=== PATIENT | female | born 1930 | race Caucasian/White ===

== ENCOUNTER 2019-04-17 08:42 | Inpatient (IN) ==
--- NOTE | 2019-04-17 08:59 | Emergency Department Note ---
Disposition Clinical Impression: JAKI (acute kidney injury) Hypothermia Qualifiers: Encounter type: initial encounter Qualified Code(s): T68.XXXA - Hypothermia, initial encounter Fall Qualifiers: Encounter type: initial encounter Qualified Code(s): W19.XXXA - Unspecified fall, initial encounter Disposition: Admitted As Inpatient Condition: Fair Time of Disposition: 14:10 General Adult HPI - General Chief complaint: ED Fall Stated complaint: Fall Time Seen by Provider: 04/17/19 08:49 Source: patient, EMS Mode of arrival: EMS Limitations: altered mental status Nursing Notes Reviewed: Yes Vital Signs Reviewed: Yes - History of Present Illness HPI Narrative: . - Related Data Home Medications Medication Instructions Recorded Confirmed Cholecalciferol (D-3) [Vitamin D] 1,000 unit PO DAILY 08/08/18 08/10/18 Cyanocobalamin (Vitamin B-12) 2,000 mcg PO HS 08/08/18 08/10/18 [Vitamin B12] Furosemide [Lasix] 20 mg PO DAILY 08/08/18 08/10/18 Lisinopril [Zestril] 40 mg PO DAILY 08/08/18 08/10/18 Metoprolol Tartrate [Lopressor] 50 mg PO BID 08/08/18 08/10/18 Aspirin [Lo-Dose Aspirin EC] 81 mg PO DAILY 08/10/18 08/10/18 Previous Rx's Medication Instructions Recorded Levothyroxine [Synthroid] 137 mcg PO DAILY@0630 #30 tablet 08/10/18 amLODIPine [Norvasc] 5 mg PO DAILY #30 tablet 08/10/18 Cephalexin [Keflex] 500 mg PO TID #15 capsule 02/23/19 Acyclovir [Zovirax] 800 mg PO 5XD #50 tablet 04/06/19 predniSONE [PredniSONE] 40 mg PO DAILY #7 tablet 04/06/19 Allergies Allergy/AdvReac Type Severity Reaction Status Date / Time Sulfa (Sulfonamide AdvReac Rash Verified 08/08/18 02:36 Antibiotics) Past Medical History - Past Medical History Medical history: Reports: arthritis, hypertension, thyroid disease Surgical history: Reports: knee replacement Psychiatric history: Reports: no psych history - Social History Smoking Status: Never smoker Smokeless Tobacco Status: No Alcohol use: Reports: none Drug use: Reports: none Course Vital Signs Temperature 91.7 F L 04/17/19 08:48 Pulse Rate 58 04/17/19 08:48 Respiratory Rate 18 04/17/19 08:48 Blood Pressure 119/49 04/17/19 08:48 O2 Sat by Pulse Oximetry 100 04/17/19 08:48 Temperature 95.9 F L 04/17/19 14:17 Pulse Rate 70 04/17/19 14:17 Respiratory Rate 18 04/17/19 14:17 Blood Pressure 116/96 04/17/19 14:17 O2 Sat by Pulse Oximetry 98 04/17/19 14:17 Oxygen Delivery Oxygen Delivery Room Air Medical Decision Making - Lab Data Result diagrams: 04/17/19 09:02 04/17/19 09:02 Lab Results 04/17/19 04/17/19 04/17/19 Range/Units 09:02 09:02 09:02 WBC 10.4 (4.3-11.1) K/mcL RBC 4.13 (3.82-4.97) M/mcL Hgb 12.9 (11.5-15.4) g/dL Hct 38.4 (35.3-44.9) % MCV 93.0 (83.0-100.0) fL MCH 31.2 (28.0-33.3) pg MCHC 33.6 (31.6-35.5) g/dL RDW 12.4 (11.5-14.5) % Plt Count 277 (140-400) K/mcL MPV 9.7 (9.4-12.4) fL Immature Gran % 1.0 (0-4) % Seg Neutrophils % 77.6 % Lymphocytes % 12.8 % Monocytes % 6.1 % Eosinophils % 2.4 % Basophils % 0.1 % Neutrophils # 8.1 (1.6-8.9) K/mcL Lymphocytes # 1.3 (0.6-4.6) K/mcL Monocytes # 0.6 (0.0-1.3) K/mcL Eosinophils # 0.3 (0.0-0.6) K/mcL Basophils # 0.0 (0.0-0.2) K/mcL Sodium 137 (136-145) mEq/L Potassium 3.5 (3.5-5.1) mEq/L Chloride 103 (98-107) mEq/L Carbon Dioxide 23 (23-29) mEq/L BUN 79 H (8-23) mg/dL Creatinine 1.62 H (0.60-1.20) mg/dL Est GFR ( Amer) 36 L (> 60) Est GFR (Non-Af Amer) 30 L (> 60) BUN/Creatinine Ratio 49 H (6-26) Glucose 194 H (70-105) mg/dL Calculated Osmolality 313 H (280-300) Lactic Acid (0.5-2.2) mmol/L Calcium 8.7 (8.6-10.3) mg/dL Phosphorus 4.2 (2.7-4.5) mg/dL Magnesium 1.9 (1.6-2.6) mg/dL Total Bilirubin 0.3 (0.3-1.0) mg/dL Direct Bilirubin 0.0 (0.0-0.2) mg/dL Indirect Bilirubin 0.3 (0.0-1.2) mg/dL AST 21 (13-39) Units/L ALT 37 (7-52) Units/L Alkaline Phosphatase 99 (34-104) Units/L Creatine Kinase 17 L (30-223) Units/L Troponin I < 0.03 (< 0.04) ng/mL Serum Total Protein 5.6 L (6.4-8.9) g/dL Albumin 3.1 L (3.5-5.7) g/dL Globulin 2.5 (2.4-3.5) g/dL Albumin/Globulin Ratio 1.2 (1.1-2.2) TSH (0.340-5.600) mcIU/mL Free T4 (0.70-2.00) ng/dl Thyroxine (T4) (5.50-11.00) mcg/dL Free T3 (2.50-3.90) pg/mL Total T3 (0.87-1.78) ng/mL Urine Color Yellow (Yellow) Urine Clarity Clear (Clear) Urine pH 5.0 (5.0-8.0) pH Units Ur Specific [place] 1.018 (1.010-1.025) Urine Protein Negative (Neg-Trace) mg/dL Urine Glucose (UA) Normal (Normal) mg/dL Urine Ketones Negative (Negative) mg/dL Urine Blood Negative (Negative) Urine Nitrite Negative (Negative) Urine Bilirubin Negative (Negative) Urine Urobilinogen Normal (Normal) mg/dL Ur Leukocyte Esterase Negative (Negative) 04/17/19 04/17/19 04/17/19 Range/Units 09:17 11:13 12:56 WBC (4.3-11.1) K/mcL RBC (3.82-4.97) M/mcL Hgb (11.5-15.4) g/dL Hct (35.3-44.9) % MCV (83.0-100.0) fL MCH (28.0-33.3) pg MCHC (31.6-35.5) g/dL RDW (11.5-14.5) % Plt Count (140-400) K/mcL MPV (9.4-12.4) fL Immature Gran % (0-4) % Seg Neutrophils % % Lymphocytes % % Monocytes % % Eosinophils % % Basophils % % Neutrophils # (1.6-8.9) K/mcL Lymphocytes # (0.6-4.6) K/mcL Monocytes # (0.0-1.3) K/mcL Eosinophils # (0.0-0.6) K/mcL Basophils # (0.0-0.2) K/mcL Sodium (136-145) mEq/L Potassium (3.5-5.1) mEq/L Chloride (98-107) mEq/L Carbon Dioxide (23-29) mEq/L BUN (8-23) mg/dL Creatinine (0.60-1.20) mg/dL Est GFR ( Amer) (> 60) Est GFR (Non-Af Amer) (> 60) BUN/Creatinine Ratio (6-26) Glucose (70-105) mg/dL Calculated Osmolality (280-300) Lactic Acid 2.4 H 1.2 (0.5-2.2) mmol/L Calcium (8.6-10.3) mg/dL Phosphorus (2.7-4.5) mg/dL Magnesium (1.6-2.6) mg/dL Total Bilirubin (0.3-1.0) mg/dL Direct Bilirubin (0.0-0.2) mg/dL Indirect Bilirubin (0.0-1.2) mg/dL AST (13-39) Units/L ALT (7-52) Units/L Alkaline Phosphatase (34-104) Units/L Creatine Kinase (30-223) Units/L Troponin I (< 0.04) ng/mL Serum Total Protein (6.4-8.9) g/dL Albumin (3.5-5.7) g/dL Globulin (2.4-3.5) g/dL Albumin/Globulin Ratio (1.1-2.2) TSH 0.549 (0.340-5.600) mcIU/mL Free T4 2.46 H (0.70-2.00) ng/dl Thyroxine (T4) 11.74 H (5.50-11.00) mcg/dL Free T3 1.58 L (2.50-3.90) pg/mL Total T3 0.19 L (0.87-1.78) ng/mL Urine Color (Yellow) Urine Clarity (Clear) Urine pH (5.0-8.0) pH Units Ur Specific [place] (1.010-1.025) Urine Protein (Neg-Trace) mg/dL Urine Glucose (UA) (Normal) mg/dL Urine Ketones (Negative) mg/dL Urine Blood (Negative) Urine Nitrite (Negative) Urine Bilirubin (Negative) Urine Urobilinogen (Normal) mg/dL Ur Leukocyte Esterase (Negative) Critical Care Time Critical Care Time: Yes Total Critical Care Time: 45 Attestation: Critical care performed: Time is exclusive of separately billable procedures. Time includes: direct patient care, patient reassessment, coordination of patient care, interpretation of data (laboratory data, radiology data, and respiratory data), review of patient's medical records, medical consultation and documentation of patient care. Procedures included in critical care time: Procedures excluded from critical care time: Attestation Statement - Attestation Attestation: I examined this patient and my medical decision-making was reviewed with the Resident Physician. I agree with the documented findings, disposition and treatment plan as described except to the extent set forth below. Patient to the ED after a fall. Patient had an unwitnessed fall at her assisted living. Fell into the bathtub. EMS she was complaining of head pain. Patient does not reliably answer questions for me. Patient states she "just fell." She does not remember if she was dizzy. She does not know if she lost consciousness. It was unwitnessed. On exam she is awake alert. Answers some questions appropriately. She is not oriented to time or place. Abdomen is soft. She is noted to have some scabs on the left chest wall consistent with a recent history of herpes zoster. No hematemesis the head. No cervical spine tenderness. No reproducible tenderness over the thoracic or lumbar spine. Pupils are symmetric and sluggish. She appears to have had some type of surgery. Plan. Patient does not answer questions appropriately. Will need imaging. She is also hypothermic. Septic workup. Likely admission. Patient with an AK I. No infectious source found. Still awaiting CTs. We will admit to medicine. EKG was reviewed with the resident. No acute ischemic changes. CT shows no acute injury. She continues to be hypothermic. We will check a TSH. Admit to medicine. Thyroid studies do not show her to be hypothyroid. Chest X-Ray 04/17/19 09:48 IMPRESSION: 1. No acute cardiopulmonary disease. D/ / 04/17/2019 10:34:11 Flex Gilliam MD / [facility] [email or web address] Interpreting Provider: Flex Gilliam MD Lumbar Spine CT 04/17/19 10:45 IMPRESSION: No acute abnormality of thoracic or lumbar spine D/ / Chelly Mays Cha, MD / Chelly Mays Cha, MD Interpreting Provider: Chelly Mays Cha, MD Thoracic Spine CT 04/17/19 10:45 IMPRESSION: No acute abnormality of thoracic or lumbar spine D/ / Chelly Mays Cha, MD / Chelly Mays Cha, MD Interpreting Provider: Chelly Mays Cha, MD Head CT 04/17/19 10:51 IMPRESSION: Cerebral atrophy. Severe chronic small vessel ischemic changes. Atherosclerotic calcification of the cavernous carotid arteries. No acute intracranial abnormality. D/ / Roro Bedoya MD / Roro Bedoya MD Interpreting Provider: Roro Bedoya MD
[2019-04-17] MEDS ORDERED: 0.9 % Sodium Chloride 1,000 ML IVC ONE (09:07)
--- NOTE | 2019-04-17 09:20 | Emergency Department Note ---
Disposition Clinical Impression: JAKI (acute kidney injury) Hypothermia Qualifiers: Encounter type: initial encounter Qualified Code(s): T68.XXXA - Hypothermia, initial encounter Fall Qualifiers: Encounter type: initial encounter Qualified Code(s): W19.XXXA - Unspecified fall, initial encounter Disposition: Admitted As Inpatient Condition: Fair Time of Disposition: 13:30 General Adult HPI - General Chief complaint: ED Fall Stated complaint: Fall Time Seen by Provider: 04/17/19 08:49 Source: patient, EMS Mode of arrival: EMS Limitations: altered mental status Nursing Notes Reviewed: Yes Vital Signs Reviewed: Yes - History of Present Illness HPI Narrative: Patient is an 80-year-old female past medical history of hypertension, h ypothyroidism, bilateral knee replacement presents to the ED for evaluation after fall this AM. Patient was found down in the bathroom tub. States she was using the toiletries and fell head first into the tub. ECF states she had donuts earlier this morning so they do not believe she was down for a prolonged period of time. No blood thinners. Unknown code status. Patient c/o HAYES and back pain. Being treated for zoster rash on the right side. Pain Scale: 6 - Related Data Home Medications Medication Instructions Recorded Confirmed Cholecalciferol (D-3) [Vitamin D] 1,000 unit PO DAILY 08/08/18 08/10/18 Cyanocobalamin (Vitamin B-12) 2,000 mcg PO HS 08/08/18 08/10/18 [Vitamin B12] Furosemide [Lasix] 20 mg PO DAILY 08/08/18 08/10/18 Lisinopril [Zestril] 40 mg PO DAILY 08/08/18 08/10/18 Metoprolol Tartrate [Lopressor] 50 mg PO BID 08/08/18 08/10/18 Aspirin [Lo-Dose Aspirin EC] 81 mg PO DAILY 08/10/18 08/10/18 Previous Rx's Medication Instructions Recorded Levothyroxine [Synthroid] 137 mcg PO DAILY@0630 #30 tablet 08/10/18 amLODIPine [Norvasc] 5 mg PO DAILY #30 tablet 08/10/18 Cephalexin [Keflex] 500 mg PO TID #15 capsule 02/23/19 Acyclovir [Zovirax] 800 mg PO 5XD #50 tablet 09/10/19 predniSONE [PredniSONE] 40 mg PO DAILY #7 tablet 04/06/19 Allergies Allergy/AdvReac Type Severity Reaction Status Date / Time Sulfa (Sulfonamide AdvReac Rash Verified 08/08/18 02:36 Antibiotics) All systems ED: reviewed and negative except as stated. Review of Systems: As Per HPI Constitutional: Denies: fever, chills Cardiovascular: Denies: chest pain, palpitations, dyspnea on exertion Respiratory: Denies: cough, dyspnea Gastrointestinal: Denies: abdominal pain, nausea, vomiting, diarrhea Genitourinary: Denies: urgency, dysuria Musculoskeletal: Reports: back pain. Denies: neck pain Integumentary: Reports: rash Neurological: Reports: headache. Denies: weakness, numbness, paresthesias, confusion, abnormal gait Past Medical History - Past Medical History Attestation: Yes The following information was validated with the patient. Medical history: Reports: non-contributory, arthritis, hypertension, thyroid disease Surgical history: Reports: knee replacement Psychiatric history: Reports: no psych history - Social History Smoking Status: Never smoker Smokeless Tobacco Status: No Alcohol use: Reports: none Drug use: Reports: none Physical Exam CONSTITUTIONAL: A&O X2, in no apparent distress, no evidence of shock HEAD: Normocephalic; atraumatic. No vila sign, raccoon eyes or evidence of CSF drainage EYES: PERRL, EOMI, no scleral icterus EARS: No hemotympanum or TM rupture, no otorrhea NECK: No tracheal deviation, JVD, or hematoma. Palpation of the posterior cervical spine reveals no tenderness NOSE: The nose is normal in appearance without rhinorrhea, epistaxis, or septal hematoma. MOUTH: Normal with intact dentition CHEST: no chest tenderness with palpation RESP: Normal chest excursion with respiration, no paradoxical motion, subcutaneous emphysema. The breath sounds are clear and equal bilaterally CARD: Regular rhythm, without murmurs, rub or gallop ABD: No distention, ecchymosis, abrasions. Non-tender, soft, without rigidity, rebound or guarding PELVIS: No laxity or tenderness with palpation or compression EXT: Good ROM without tenderness, deformity. Pulses 2+ in 4 extremities SKIN: Normal for age and race; Rash beneath left breast that is raw and pink. - General Limitations: altered mental status General appearance: alert, in no apparent distress Course Course Narrative: Patient's hypothermia is mildly improving last recorded temperature was 93 degrees Fahrenheit. Her blood pressures remained soft however on numerous rechecks she is been maintaining a map greater than 65. Lactic was slightly elevated she also has acute kidney injury suspect this is partially due to dehydration him also considering that she may be on too many blood pressure medications. Her EKG was nonischemic. I also check thyroid hormone given her hypothermia and bradycardia however that appear to be normal. Do not suspect that this is from an infectious cause given her negative chest x-ray and urinalysis. She will need to come into the hospital for further evaluation was accepted by the hospitalist. Vital Signs Temperature 91.7 F L 04/17/19 08:48 Pulse Rate 58 04/17/19 08:48 Respiratory Rate 18 04/17/19 08:48 Blood Pressure 119/49 04/17/19 08:48 O2 Sat by Pulse Oximetry 100 04/17/19 08:48 Temperature 93.1 F L 04/17/19 12:25 Pulse Rate 50 04/17/19 12:38 Respiratory Rate 16 04/17/19 12:38 Blood Pressure 80/34 04/17/19 12:38 O2 Sat by Pulse Oximetry 99 04/17/19 12:38 Oxygen Delivery Oxygen Delivery Room Air Medical Decision Making - Medical Records Medical records reviewed: Yes I reviewed the patient's medical records. - Lab Data Lab results reviewed: Yes I reviewed the patient's lab results. Result diagrams: 04/17/19 09:02 04/17/19 09:02 Lab Results 04/17/19 04/17/19 04/17/19 Range/Units 09:02 09:02 09:02 WBC 10.4 (4.3-11.1) K/mcL RBC 4.13 (3.82-4.97) M/mcL Hgb 12.9 (11.5-15.4) g/dL Hct 38.4 (35.3-44.9) % MCV 93.0 (83.0-100.0) fL MCH 31.2 (28.0-33.3) pg MCHC 33.6 (31.6-35.5) g/dL RDW 12.4 (11.5-14.5) % Plt Count 277 (140-400) K/mcL MPV 9.7 (9.4-12.4) fL Immature Gran % 1.0 (0-4) % Seg Neutrophils % 77.6 % Lymphocytes % 12.8 % Monocytes % 6.1 % Eosinophils % 2.4 % Basophils % 0.1 % Neutrophils # 8.1 (1.6-8.9) K/mcL Lymphocytes # 1.3 (0.6-4.6) K/mcL Monocytes # 0.6 (0.0-1.3) K/mcL Eosinophils # 0.3 (0.0-0.6) K/mcL Basophils # 0.0 (0.0-0.2) K/mcL Sodium 137 (136-145) mEq/L Potassium 3.5 (3.5-5.1) mEq/L Chloride 103 (98-107) mEq/L Carbon Dioxide 23 (23-29) mEq/L BUN 79 H (8-23) mg/dL Creatinine 1.62 H (0.60-1.20) mg/dL Est GFR ( Amer) 36 L (> 60) Est GFR (Non-Af Amer) 30 L (> 60) BUN/Creatinine Ratio 49 H (6-26) Glucose 194 H (70-105) mg/dL Calculated Osmolality 313 H (280-300) Lactic Acid (0.5-2.2) mmol/L Calcium 8.7 (8.6-10.3) mg/dL Phosphorus 4.2 (2.7-4.5) mg/dL Magnesium 1.9 (1.6-2.6) mg/dL Total Bilirubin 0.3 (0.3-1.0) mg/dL Direct Bilirubin 0.0 (0.0-0.2) mg/dL Indirect Bilirubin 0.3 (0.0-1.2) mg/dL AST 21 (13-39) Units/L ALT 37 (7-52) Units/L Alkaline Phosphatase 99 (34-104) Units/L Creatine Kinase 17 L (30-223) Units/L Troponin I < 0.03 (< 0.04) ng/mL Serum Total Protein 5.6 L (6.4-8.9) g/dL Albumin 3.1 L (3.5-5.7) g/dL Globulin 2.5 (2.4-3.5) g/dL Albumin/Globulin Ratio 1.2 (1.1-2.2) TSH (0.340-5.600) mcIU/mL Free T4 (0.70-2.00) ng/dl Thyroxine (T4) (5.50-11.00) mcg/dL Free T3 (2.50-3.90) pg/mL Total T3 (0.87-1.78) ng/mL Urine Color Yellow (Yellow) Urine Clarity Clear (Clear) Urine pH 5.0 (5.0-8.0) pH Units Ur Specific [place] 1.018 (1.010-1.025) Urine Protein Negative (Neg-Trace) mg/dL Urine Glucose (UA) Normal (Normal) mg/dL Urine Ketones Negative (Negative) mg/dL Urine Blood Negative (Negative) Urine Nitrite Negative (Negative) Urine Bilirubin Negative (Negative) Urine Urobilinogen Normal (Normal) mg/dL Ur Leukocyte Esterase Negative (Negative) 04/17/19 04/17/19 04/17/19 Range/Units 09:17 11:13 12:56 WBC (4.3-11.1) K/mcL RBC (3.82-4.97) M/mcL Hgb (11.5-15.4) g/dL Hct (35.3-44.9) % MCV (83.0-100.0) fL MCH (28.0-33.3) pg MCHC (31.6-35.5) g/dL RDW (11.5-14.5) % Plt Count (140-400) K/mcL MPV (9.4-12.4) fL Immature Gran % (0-4) % Seg Neutrophils % % Lymphocytes % % Monocytes % % Eosinophils % % Basophils % % Neutrophils # (1.6-8.9) K/mcL Lymphocytes # (0.6-4.6) K/mcL Monocytes # (0.0-1.3) K/mcL Eosinophils # (0.0-0.6) K/mcL Basophils # (0.0-0.2) K/mcL Sodium (136-145) mEq/L Potassium (3.5-5.1) mEq/L Chloride (98-107) mEq/L Carbon Dioxide (23-29) mEq/L BUN (8-23) mg/dL Creatinine (0.60-1.20) mg/dL Est GFR ( Amer) (> 60) Est GFR (Non-Af Amer) (> 60) BUN/Creatinine Ratio (6-26) Glucose (70-105) mg/dL Calculated Osmolality (280-300) Lactic Acid 2.4 H 1.2 (0.5-2.2) mmol/L Calcium (8.6-10.3) mg/dL Phosphorus (2.7-4.5) mg/dL Magnesium (1.6-2.6) mg/dL Total Bilirubin (0.3-1.0) mg/dL Direct Bilirubin (0.0-0.2) mg/dL Indirect Bilirubin (0.0-1.2) mg/dL AST (13-39) Units/L ALT (7-52) Units/L Alkaline Phosphatase (34-104) Units/L Creatine Kinase (30-223) Units/L Troponin I (< 0.04) ng/mL Serum Total Protein (6.4-8.9) g/dL Albumin (3.5-5.7) g/dL Globulin (2.4-3.5) g/dL Albumin/Globulin Ratio (1.1-2.2) TSH 0.549 (0.340-5.600) mcIU/mL Free T4 2.46 H (0.70-2.00) ng/dl Thyroxine (T4) 11.74 H (5.50-11.00) mcg/dL Free T3 1.58 L (2.50-3.90) pg/mL Total T3 0.19 L (0.87-1.78) ng/mL Urine Color (Yellow) Urine Clarity (Clear) Urine pH (5.0-8.0) pH Units Ur Specific [place] (1.010-1.025) Urine Protein (Neg-Trace) mg/dL Urine Glucose (UA) (Normal) mg/dL Urine Ketones (Negative) mg/dL Urine Blood (Negative) Urine Nitrite (Negative) Urine Bilirubin (Negative) Urine Urobilinogen (Normal) mg/dL Ur Leukocyte Esterase (Negative) - Radiology Data Radiology results reviewed: Yes I reviewed the patient's radiology results. Chest X-Ray 04/17/19 09:48 IMPRESSION: 1. No acute cardiopulmonary disease. D/ / 04/17/2019 10:34:11 Flex Gilliam MD / [facility] Interpreting Provider: Flex Gilliam MD Lumbar Spine CT 04/17/19 10:45 IMPRESSION: No acute abnormality of thoracic or lumbar spine D/ / Chelly Mays Cha, MD / Chelly Mays Cha, MD Interpreting Provider: Chelly Mays Cha, MD Thoracic Spine CT 04/17/19 10:45 IMPRESSION: No acute abnormality of thoracic or lumbar spine D/ / Chelly Mays Cha, MD / Chelly Mays Cha, MD Interpreting Provider: Chelly Mays Cha, MD Head CT 04/17/19 10:51 IMPRESSION: Cerebral atrophy. Severe chronic small vessel ischemic changes. Atherosclerotic calcification of the cavernous carotid arteries. No acute intracranial abnormality. D/ / 04/17/2019 11:28:51 Roro Bedoya MD / [facility] Interpreting Provider: Roro Bedoya MD Cervical Spine CT 04/17/19 12:42 IMPRESSION: No acute abnormality of the cervical spine. D/ / Chelly Mays Cha, MD / Chelly Mays Cha, MD Interpreting Provider: Chelly Mays Cha, MD - EKG Data EKG #1 EKG attestation: Yes I reviewed and interpreted this EKG. EKG results narrative: EKG done at 8:59 shows atrial fibrillation at a rate of 57 bpm. Normal axis. Intervals within normal limits to for slightly widened QRS at 127. Leads systolic inverted in the inferior which appears to be similar on old EKG done in January 2019. No changes.
[2019-04-17 09:26] LABS: Basophils % 0.1 %; Eosinophils # 0.3 K/mcL (0.0-0.6); Eosinophils % 2.4 %; Hematocrit 38.4 % (35.3-44.9); Hemoglobin 12.9 g/dL (11.5-15.4); Lymphocytes # 1.3 K/mcL (0.6-4.6); Lymphocytes % 12.8 %; Mean Corpuscular HGB Conc 33.6 g/dL (31.6-35.5); Mean Corpuscular Hemoglobin 31.2 pg (28.0-33.3); Mean Platelet Volume 9.7 fL (9.4-12.4); Monocytes # 0.6 K/mcL (0.0-1.3); Monocytes % 6.1 %; Neutrophils # 8.1 K/mcL (1.6-8.9); Platelet Count 277 K/mcL (140-400); Red Blood Count 4.13 M/mcL (3.82-4.97); Red Cell Distribution Width 12.4 % (11.5-14.5); Segmented Neutrophils % 77.6 %; White Blood Count 10.4 K/mcL (4.3-11.1)
[2019-04-17 09:30] LABS: Bilirubin,Urine Negative (Negative); Blood,Urine Negative (Negative); Clarity,Urine Clear (Clear); Color,Urine Yellow (Yellow); Glucose,Urine (UA) Normal (Normal); Ketones,Urine Negative (Negative); Leukocyte Esterase,Urine Negative (Negative); Nitrite,Urine Negative (Negative); Protein,Urine Negative (Neg-Trace); Specific Gravity,Urine 1.018 (1.010-1.025); Urobilinogen,Urine Normal (Normal)
[2019-04-17 09:47] LABS: Alanine Aminotransferase 37 Units/L (7-52); Albumin 3.1 g/dL (3.5-5.7); Albumin/Globulin Ratio 1.2 (1.1-2.2); Alkaline Phosphatase 99 Units/L (34-104); Aspartate Amino Transferase 21 Units/L (13-39); BUN/Creatinine Ratio 49 (6-26); Bilirubin,Indirect 0.3 mg/dL (0.0-1.2); Bilirubin,Total 0.3 mg/dL (0.3-1.0); Blood Urea Nitrogen 79 mg/dL (8-23); Calcium 8.7 mg/dL (8.6-10.3); Carbon Dioxide 23 mEq/L (23-29); Chloride 103 mEq/L (98-107); Creatine Kinase 17 Units/L (30-223); Globulin 2.5 g/dL (2.4-3.5); Glucose 194 mg/dL (70-105); Magnesium 1.9 mg/dL (1.6-2.6); Osmolality,Calculated 313 (280-300); Phosphorous 4.2 mg/dL (2.7-4.5); Potassium 3.5 mEq/L (3.5-5.1); Sodium 137 mEq/L (136-145); Total Protein 5.6 g/dL (6.4-8.9); Troponin I < 0.03 ng/mL (< 0.04); eGFR For African Americans 36 (> 60); eGFR For Non-African Americans 30 (> 60)
[2019-04-17 12:02] LABS: Thyroid Stimulating Hormone 0.549 mcIU/mL (0.340-5.600)
[2019-04-17 12:05] LABS: Triiodothyronine (T3) Free 1.58 pg/mL (2.50-3.90)
[2019-04-17 12:10] LABS: Triiodothyronine (T3) Total 0.19 ng/mL (0.87-1.78)
[2019-04-17] MEDS ORDERED: 0.9 % Sodium Chloride 1,000 ML IVC SCH ×2 (12:30→13:29)
--- NOTE | 2019-04-17 13:27 | Internal Med History&Physical ---
Date of Encounter: 04/17/19 Time of Encounter: 13:23 Internal Medicine - H&P: HPI Chief complaint: fall Admitted From: Long-term Nursing Facility Plans for Post Hospital Care: Transfer [facility] History of present illness: Ms. Bradford is a 88 year old female with past medical history of hypertension, hypothyroidism, bilateral knee replacement, diastolic CHF who was recently treated for shingles came from half-way after a fall. Patient does not able to recall exactly what led to the fall and said he was very quick. Patient was reported to eat donut early this morning and later went to bathroom where she was found on the floor. She was likely not on floor for long time before found. She was brought to the ER for further evaluation. She complained of some headache and back pain. Patient had a imaging of her spine had and neck which did not show any signs of fracture and her chest x-ray was unremarkable. Lab was significant for JAKI with mildly elevated lactic acid and normal TSH with abnormal levels of free T4 and T3. Patient's EKG was poor quality and her atrial fibrillation however was likely sinus as it was marching regularly. Patient was found to have some hypothermia and hypotension. Patient was started on Bear hugger and was given IV fluids 1 L. Her blood pressure improved. Patient recently was diagnosed with shingles and was being treated with acyclovir for 10 days and prednisone for 7 days on 04/06 chest pain. Patient also on Lasix, lisinopril, metoprolol and amlodipine at home. Her chest wounds on the left side of her breast were scabbed and following of however there was concern of intertrigo. Admission was requested for management of JAKI. Patient was evaluated in ER where she was alert and oriented 1 able to answer questions and remember some of her medical history however was a poor historian. She denied any pain anywhere. Able to follow commands. Discussed her visit with niece who is medical power of state's attorney who requested to keep her full code for now. She will get back after discussion with the rest of the family. Given her blood pressure we will keep her in 2 N. unit. Past Med Surg Social Fam HX - Past Medical History Medical history: non-contributory, arthritis, hypertension, thyroid disease Psychiatric history: no psych history - Past Surgical History Surgical History: knee replacement Additional surgical history: glaucoma surgery, heart stent - Social History Smoking Status: Never smoker Smokeless Tobacco Status: No Alcohol use: none Drug use: none - Family History Mother Hx Family Cardiac Disorders: Yes (HTN) Father Hx Family Cardiac Disorders: Yes ([place]) Internal Medicine - H&P: Meds Cholecalciferol (D-3) [Vitamin D] 1,000 unit PO DAILY 08/08/18 [History] Cyanocobalamin (Vitamin B-12) [Vitamin B12] 2,000 mcg PO HS 08/08/18 [History] Furosemide [Lasix] 20 mg PO DAILY 08/08/18 [History] Lisinopril [Zestril] 40 mg PO DAILY 08/08/18 [History] Metoprolol Tartrate [Lopressor] 50 mg PO BID 08/08/18 [History] Aspirin [Lo-Dose Aspirin EC] 81 mg PO DAILY 08/10/18 [History] Levothyroxine [Synthroid] 137 mcg PO DAILY@0630 #30 tablet 08/10/18 [Rx] amLODIPine [Norvasc] 5 mg PO DAILY #30 tablet 08/10/18 [Rx] Cephalexin [Keflex] 500 mg PO TID #15 capsule 02/23/19 [Rx] Acyclovir [Zovirax] 800 mg PO 5XD #50 tablet 04/06/19 [Rx] predniSONE [PredniSONE] 40 mg PO DAILY #7 tablet 04/06/19 [Rx] Allergy/AdvReac Type Severity Reaction Status Date / Time Sulfa (Sulfonamide AdvReac Rash Verified 08/08/18 02:36 Antibiotics) All Systems PM: A 10-system review of systems was performed and is negative for pertinent findings except as documented above in the HPI. - EENT Ears: decreased hearing - Constitutional Vitals: Temp Pulse Resp BP Pulse Ox 93.1 F L 50 16 80/34 99 04/17/19 12:25 04/17/19 12:38 04/17/19 12:38 04/17/19 12:38 04/17/19 12:38 Exam: Constitutional: Vitals as noted. Conversant. No Apparent Distress. slow to respond. Eyes : Sclera white, irregular pupil on Rt ENT : decreased hearing. Respiratory : Clear to auscultation bilaterally. No accessory muscle use, rales, rhonchi or wheezes Cardiovascular : bradycardia, +S1, +S2. no murmur, gallop, rubs. No chest wall tenderness GI/Abdominal : Soft, Non-tender, Non-distended, no peritoneal signs. no orgenomegaly or mass appreciated. no hernia. Musculoskeletal: no deformity noted. 2+ edema or cyanosis. warm extremities, some calf tenderness. Neurological: AO X1, CN II-XII grossly intact, grossly normal motor and sensory exam. limited exam Skin: Has erythematous rash below b/l breast, Lt breast with scabbed lesion. Non tender Pych: poor memory Internal Med - H&P Results - Labs CBC & Chem 7: 04/17/19 09:02 04/17/19 09:02 Labs: Short CBC 04/17/19 Range/Units 09:02 WBC 10.4 (4.3-11.1) K/mcL Hgb 12.9 (11.5-15.4) g/dL Hct 38.4 (35.3-44.9) % Plt Count 277 (140-400) K/mcL Neutrophils # 8.1 (1.6-8.9) K/mcL BMP 04/17/19 09:02 Sodium 137 Potassium 3.5 Chloride 103 Carbon Dioxide 23 BUN 79 H Creatinine 1.62 H Glucose 194 H Calcium 8.7 Cardiac Enzymes 04/17/19 Range/Units 09:02 Troponin I < 0.03 (< 0.04) ng/mL Liver Function 04/17/19 Range/Units 09:02 Total Bilirubin 0.3 (0.3-1.0) mg/dL Direct Bilirubin 0.0 (0.0-0.2) mg/dL AST 21 (13-39) Units/L ALT 37 (7-52) Units/L Alkaline Phosphatase 99 (34-104) Units/L Albumin 3.1 L (3.5-5.7) g/dL Urine 04/17/19 Range/Units 09:02 Urine Color Yellow (Yellow) Urine Clarity Clear (Clear) Urine pH 5.0 (5.0-8.0) pH Units Ur Specific [place] 1.018 (1.010-1.025) Urine Protein Negative (Neg-Trace) mg/dL Urine Glucose (UA) Normal (Normal) mg/dL - EKG Data -: EKG Interpreted by Myself EKG shows normal: sinus rhythm - Impressions ITS Impressions Chest X-Ray 04/17/19 09:48 IMPRESSION: 1. No acute cardiopulmonary disease. D/ / 04/17/2019 10:34:11 Flex Gilliam MD / renetta Interpreting Provider: Flex Gilliam MD Lumbar Spine CT 04/17/19 10:45 IMPRESSION: No acute abnormality of thoracic or lumbar spine D/ / Chelly Mays Cha, MD / Chelly Mays Cha, MD Interpreting Provider: Chelly Mays Cha, MD Thoracic Spine CT 04/17/19 10:45 IMPRESSION: No acute abnormality of thoracic or lumbar spine D/ / Chelly Mays Cha, MD / Chelly Mays Cha, MD Interpreting Provider: Chelly Mays Cha, MD Head CT 04/17/19 10:51 IMPRESSION: Cerebral atrophy. Severe chronic small vessel ischemic changes. Atherosclerotic calcification of the cavernous carotid arteries. No acute intracranial abnormality. D/ / 04/17/2019 11:28:51 Roro Bedoya MD / renetta Interpreting Provider: Roro Bedoya MD Cervical Spine CT 04/17/19 12:42 IMPRESSION: No acute abnormality of the cervical spine. D/ / Chelly Mays Cha, MD / Chelly Mays Cha, MD Interpreting Provider: Chelly Mays Cha, MD - Assessment and Plan (1) JAKI (acute kidney injury) Current Visit: Yes Status: Acute Assessment and plan: Possibly related to her home use of Lasix and lisinopril Patient had a [place] catheter placed in ER. We will monitor her urine output. We will keep on maintenance IV fluid at 50 mL for 500 mL. Possible component of prerenal due to hypotension. We will obtain urine studies. Urine analysis is without signs of infection (2) Fall Current Visit: Yes Status: Acute Assessment and plan: Unclear exact etiology. Possibly mechanical EKG was poor quality with artifact and was read A. fib however QRS marching regularly. We will repeat EKG. We will obtain physical therapy and occupational therapy consult. Qualifiers: Encounter type: initial encounter Qualified Code(s): W19.XXXA - Unspecified fall, initial encounter (3) Hypothermia Current Visit: Yes Status: Acute Assessment and plan: No signs of systemic infection Could be related to her JAKI and antihypertensive medications Hold all home antihypertensives. Improved with IV fluids. We will consider stress dose steroid if does not continue to improve. Qualifiers: Encounter type: initial encounter Qualified Code(s): T68.XXXA - Hypothermia, initial encounter (4) Hypothyroidism Current Visit: No Status: Chronic Assessment and plan: Patient with normal TSH and abnormal T3, T4 levels. Initially with concern due to hypotension and some very cardiac however blood pressure improved with IV fluids. Will continue her home dose of levothyroxine for now Qualifiers: Hypothyroidism type: unspecified Qualified Code(s): E03.9 - Hypothyroidism, unspecified (5) Hypotension Current Visit: Yes Status: Acute Assessment and plan: Unclear cause of hypotension No signs of systemic infection. Her herpes lesion seems to be improving. However there is some associated intertrigo on bilateral inframammary fold. We will apply nystatin. We will consider treatment for cellulitis if does not improve and if he becomes hypotensive again. Follow up blood cultures Lactate improved with IV fluids Qualifiers: Hypotension type: unspecified hypotension type Qualified Code(s): I95.9 - Hypotension, unspecified (6) Abnormal EKG Current Visit: Yes Status: Acute Assessment and plan: Follow-up repeat EKG Does not seem to have A. fib Keep on telemetry - Time Spent With Patient Total time spent is greater than 50% in coordination of care (as documented) at patient's floor/unit and/or counseling patient:
[2019-04-17] MEDS: Nystatin POWDER 30 GM BOTTLE TP SCH (18:21)
[2019-04-18] MEDS: Nystatin POWDER 30 GM BOTTLE TP SCH ×3 (00:15→19:55)
[2019-04-18 00:38] LABS: Sodium, Urine 54.7 mEq/L
[2019-04-18 03:27] LABS: Calcium 7.8 mg/dL (8.6-10.3); Magnesium 1.7 mg/dL (1.6-2.6); Phosphorous 3.2 mg/dL (2.7-4.5); Potassium 3.9 mEq/L (3.5-5.1)
[2019-04-18] MEDS: Aspirin Enteric Coated 81 MG Tablet PO SCH (07:28)
[2019-04-18] MEDS ORDERED: Gabapentin 300 MG CAPSULE PO PRN (07:48)
[2019-04-18] MEDS ORDERED: Ringers Solution, Lactated 1,000 ML IVC SCH (08:00)
[2019-04-18] MEDS: cephALEXin 500 MG CAPSULE PO SCH ×3 (09:13→19:54)
[2019-04-18] MEDS: Cholecalciferol (D-3) 1,000 UNIT (25MCG) TABLET PO SCH (09:13)
--- NOTE | 2019-04-18 12:43 | Internal Med Progress Note ---
Hospitalist Progress Note - Encounter Date of Encounter: 04/18/19 Time of Encounter: 12:41 - Subjective Interval History: I have seen and evaluated the patient at bedside. patient reported generalized body aches, denies chest pain, nausea or vomiting. denies abdominal pain or urinary symptoms. - Exam Vitals: Temp Pulse Resp BP Pulse Ox 97.7 F 70 18 153/61 96 04/18/19 11:46 04/18/19 11:46 04/18/19 11:46 04/18/19 11:46 04/18/19 11:46 Exam: Vitals: Reviewed General: Alert and oriented x2. In mild distress due to generalized body ache. Skin: dark/dry crusting lesion on the left ant chest at the breast level. HEENT: EOM, pupils equal, round and reactive. Cardiovascular: RRR, normal S1 & S2, no rubs, murmurs or gallops. Lungs: CTA b/l, no wheezes or crackles. Abdomen: Soft, non-tender, no rigidity. Extremities: 1+ edema in the lower ext b/l. Neurological: No focal neurological abnormalities. Rest of the physical exam is non contributory - Assessment and Plan (1) JAKI (acute kidney injury) Current Visit: Yes Status: Acute Assessment and Plan: possible secondary to poor oral intake vs diuretics. continue to hold furosemide LR@75ml/hr x1 litters will reassess kidney in the morning hold ACEs (2) Fall Current Visit: Yes Status: Acute Assessment and Plan: PT/OT ordered. patient with an extensive skeletal survey done: unremarkable (3) Hypothermia Current Visit: Yes Status: Resolved (4) Hypothyroidism Current Visit: No Status: Chronic Assessment and Plan: on levothyroxine 112 mcg/po daily (5) Hypotension Current Visit: Yes Status: Resolved (6) Abnormal EKG Current Visit: Yes Status: Acute (7) Hypertension Current Visit: No Status: Chronic Assessment and Plan: started on metoprolol 25mg/PO BID, home dose. hold furosemide and lisinopril due to jaki. (8) Shingles Current Visit: Yes Status: Acute Assessment and Plan: c/w acyclovir and cephalexin DVT Prophylaxis: On heparin subq - Summary of Assessment and Plan Summary of Assessment and Plan: patient to remain in the hospital due to acute kidney injury on IV hydration. - Time Spent with Patient Total time spent is greater than 50% in coordination of care (as documented) at patient's floor/unit and/or counseling patient: Greater than 35 minutes (40) Plan of Care Discussed with: nurse (and patient's POA at bedside.) Internal Medicine: Result - Labs CBC & Chem 7: 04/17/19 09:02 04/18/19 02:43 Labs: BMP 04/18/19 02:43 Sodium 140 Potassium 3.9 Chloride 109 H Carbon Dioxide 22 L BUN 64 H Creatinine 1.37 H Glucose 88 Calcium 7.8 L - Impressions Impressions Cervical Spine CT 04/17/19 12:42 IMPRESSION: No acute abnormality of the cervical spine. D/ / Chelly Mays Cha, MD / Chelly Mays Cha, MD Interpreting Provider: Chelly Mays Cha, MD Tibia/Fibula X-Ray 04/17/19 19:24 IMPRESSION: Osteopenia. No acute osseous injury of either tib-fib. Status post bilateral knee replacement. D/ / 04/17/2019 19:32:04 Kevin Cloud MD / courtney Interpreting Provider: Kevin Cloud MD Tibia/Fibula X-Ray 04/17/19 19:24 IMPRESSION: Osteopenia. No acute osseous injury of either tib-fib. Status post bilateral knee replacement. D/ / 04/17/2019 19:32:04 Kevin Cloud MD / courtney Interpreting Provider: Kevin Cloud MD Consult Discharge Plan - Plan Referrals: Sheron Garza, TREATING ENGINEER [Primary Care Provider] - (2) Fall Qualifiers: Encounter type: initial encounter Qualified Code(s): W19.XXXA - Unspecified fall, initial encounter (3) Hypothermia Qualifiers: Encounter type: initial encounter Qualified Code(s): T68.XXXA - Hypothermia, initial encounter (4) Hypothyroidism Qualifiers: Hypothyroidism type: unspecified Qualified Code(s): E03.9 - Hypothyroidism, unspecified (5) Hypotension Qualifiers: Hypotension type: unspecified hypotension type Qualified Code(s): I95.9 - Hypotension, unspecified (7) Hypertension Qualifiers: Hypertension type: essential hypertension Qualified Code(s): I10 - Essential (primary) hypertension (8) Shingles Qualifiers: Herpes zoster complications: without complications Qualified Code(s): B02.9 - Zoster without complications
[2019-04-18] MEDS: *HR* Heparin 5,000 UNIT/ML VIAL SQ SCH (16:48)
[2019-04-19] MEDS ORDERED: amLODIPine 5 MG TABLET PO ONE ×2 (01:26→09:00)
[2019-04-19] MEDS: *HR* Heparin 5,000 UNIT/ML VIAL SQ SCH ×2 (05:11→17:07)
[2019-04-19] MEDS: Nystatin Cream 15 GM TUBE TP SCH ×4 (05:11→20:10)
[2019-04-19] MEDS: Cholecalciferol (D-3) 1,000 UNIT (25MCG) TABLET PO SCH (08:04)
[2019-04-19] MEDS: Aspirin Enteric Coated 81 MG Tablet PO SCH (08:04)
[2019-04-19] MEDS: cephALEXin 500 MG CAPSULE PO SCH ×3 (08:04→20:09)
[2019-04-19 08:07] LABS: Calcium 8.4 mg/dL (8.6-10.3); Magnesium 1.5 mg/dL (1.6-2.6); Phosphorous 2.3 mg/dL (2.7-4.5); Potassium 3.9 mEq/L (3.5-5.1)
--- NOTE | 2019-04-19 10:31 | Electrocardiograph Report ---
[facility] [employer] Test Date: 2019-04-17 Pat Name: Darcie Bradford Department: EXAM2 Room: 06 Gender: F Remedy Developer: : 1930 Requested By: Eva See Order Number: [id number] Reading MD: Jeovanny Booth Measurements Intervals [place] Rate: 57 P: PA: QRS: -3 QRSD: 127 T: 6 QT: 450 QTc: 439 Interpretive Statements Atrial fibrillation Electronically Signed On 04-19-2019 10:03:28 EDT by Jeovanny Booth
--- NOTE | 2019-04-19 14:15 | Internal Med Progress Note ---
Hospitalist Progress Note - Encounter Date of Encounter: 04/19/19 Time of Encounter: 14:12 - Subjective Interval History: I have seen and evaluated the patient at bedside. Patient reported feeling better today, but reports feeling weak. denies nausea, vomiting or abdominal pain. - Exam Vitals: Temp Pulse Resp BP Pulse Ox 98.3 F 72 17 171/65 96 04/19/19 11:31 04/19/19 11:31 04/19/19 11:31 04/19/19 11:31 04/19/19 11:31 Exam: Vitals: reviewed General: Alert and oriented x2. In no distress Cardiovascular: RRR, normal S1 & S2, no rubs, murmurs or gallops. Lungs: CTA b/l, no wheezes or crackles. Abdomen: Obese, soft, non-tender, no rigidity. Extremities: 1+ pitting edema. Neurological: No focal neurological abnormalities. Rest of the physical exam is non contributory - Assessment and Plan (1) Shingles Current Visit: Yes Status: Acute Assessment and Plan: Patient is on acyclovir and cephalexin (2) JAKI (acute kidney injury) Current Visit: Yes Status: Resolved Assessment and Plan: avoid nephrotoxic medications. will resume home dose of furosemide 20mg/IV daily. continue to hold lisinopril. (3) Fall Current Visit: Yes Status: Acute Assessment and Plan: daily PT/OT. fall precautions (4) Hypothermia Current Visit: Yes Status: Resolved (5) Hypothyroidism Current Visit: No Status: Chronic Assessment and Plan: c/w levothyroxine 112 mcg/po daily (6) Hypertension Current Visit: No Status: Chronic Assessment and Plan: BP is sub-optimally controlled. re-started on furosemide, metoprolol increased to 50mg/POP BID. will continue to monitor and adjust medications accordingly. (7) Hypomagnesemia Current Visit: Yes Status: Acute Assessment and Plan: electrolytes replaced. will replaced electrolyte level tomorrow morning (8) Hypophosphatemia Current Visit: Yes Status: Acute Assessment and Plan: plan of care as above. (9) Hypotension Current Visit: Yes Status: Resolved DVT Prophylaxis: Intermittent pneumatic compression for dvt prophylaxis. - Summary of Assessment and Plan Summary of Assessment and Plan: Patient to remain in the hospital due to electrolyte imbalance, requiring IV electrolyte replacements. - Time Spent with Patient Total time spent is greater than 50% in coordination of care (as documented) at patient's floor/unit and/or counseling patient: Greater than 35 minutes (45) Plan of Care Discussed with: nurse Internal Medicine: Result - Labs CBC & Chem 7: 04/17/19 09:02 04/19/19 07:36 Labs: BMP 04/19/19 07:36 Sodium 143 Potassium 3.9 Chloride 110 H Carbon Dioxide 25 BUN 40 H Creatinine 1.17 Glucose 98 Calcium 8.4 L - Impressions Impressions Head CT 04/17/19 10:51 IMPRESSION: Cerebral atrophy. Severe chronic small vessel ischemic changes. Atherosclerotic calcification of the cavernous carotid arteries. No acute intracranial abnormality. D/ / 04/17/2019 11:28:51 Roro Bedoya MD / renetta Interpreting Provider: Roro Bedoya MD Consult Discharge Plan - Plan Referrals: Sheron Garza FORMS EXAMINER [Primary Care Provider] - 04/28/19 10:30 am (1) Shingles Qualifiers: Herpes zoster complications: without complications Qualified Code(s): B02.9 - Zoster without complications (3) Fall Qualifiers: Encounter type: initial encounter Qualified Code(s): W19.XXXA - Unspecified fall, initial encounter (4) Hypothermia Qualifiers: Encounter type: initial encounter Qualified Code(s): T68.XXXA - Hypothermia, initial encounter (5) Hypothyroidism Qualifiers: Hypothyroidism type: unspecified Qualified Code(s): E03.9 - Hypothyroidism, unspecified (6) Hypertension Qualifiers: Hypertension type: essential hypertension Qualified Code(s): I10 - Essential (primary) hypertension (9) Hypotension Qualifiers: Hypotension type: unspecified hypotension type Qualified Code(s): I95.9 - Hypotension, unspecified
[2019-04-19] MEDS: Furosemide 20 MG/2 ML VIAL IVP SCH (14:52)
[2019-04-20] MEDS: *HR* Heparin 5,000 UNIT/ML VIAL SQ SCH (05:55)
[2019-04-20 06:43] LABS: Basophils % 0.1 %; Eosinophils # 0.2 K/mcL (0.0-0.6); Eosinophils % 2.3 %; Hematocrit 33.9 % (35.3-44.9); Hemoglobin 11.7 g/dL (11.5-15.4); Immature Granulocytes % 0.9 % (0-4); Lymphocytes # 1.3 K/mcL (0.6-4.6); Lymphocytes % 15.4 %; Mean Corpuscular HGB Conc 34.5 g/dL (31.6-35.5); Mean Corpuscular Volume 89.7 fL (83.0-100.0); Mean Platelet Volume 9.7 fL (9.4-12.4); Monocytes # 0.8 K/mcL (0.0-1.3); Monocytes % 8.9 %; Neutrophils # 6.2 K/mcL (1.6-8.9); Platelet Count 219 K/mcL (140-400); Red Blood Count 3.78 M/mcL (3.82-4.97); Red Cell Distribution Width 12.1 % (11.5-14.5); Segmented Neutrophils % 72.4 %; White Blood Count 8.6 K/mcL (4.3-11.1)
[2019-04-20 07:03] LABS: Calcium 8.4 mg/dL (8.6-10.3); Magnesium 1.4 mg/dL (1.6-2.6); Phosphorous 3.1 mg/dL (2.7-4.5); Potassium 3.5 mEq/L (3.5-5.1)
[2019-04-20] MEDS ORDERED: amLODIPine 5 MG TABLET PO SCH (09:00)
[2019-04-20] MEDS: cephALEXin 500 MG CAPSULE PO SCH ×2 (09:06→15:34)
[2019-04-20] MEDS: Cholecalciferol (D-3) 1,000 UNIT (25MCG) TABLET PO SCH (09:06)
[2019-04-20] MEDS: Aspirin Enteric Coated 81 MG Tablet PO SCH (09:06)
[2019-04-20] MEDS: Furosemide 20 MG/2 ML VIAL IVP SCH (09:08)
[2019-04-20] MEDS: Nystatin Cream 15 GM TUBE TP SCH (09:08)
[2019-04-20 11:31] VITALS: BP 132/75
--- NOTE | 2019-04-20 11:56 | Discharge Summary ---
Orders not resulted at time of discharge: Pending orders 04/17/19 09:22 Culture,Blood [BC] Stat Date of Encounter: 04/20/19 Time of Encounter: 11:53 - Discharge Diagnosis (1) Shingles Priority: Primary Status: Acute Qualifiers: Herpes zoster complications: without complications Qualified Code(s): B02.9 - Zoster without complications (2) JAKI (acute kidney injury) Priority: Secondary Status: Resolved (3) Fall Priority: Secondary Status: Acute Qualifiers: Encounter type: initial encounter Qualified Code(s): W19.XXXA - Unspecified fall, initial encounter (4) Hypothermia Priority: Secondary Status: Resolved Qualifiers: Encounter type: initial encounter Qualified Code(s): T68.XXXA - Hypothermia, initial encounter (5) Hypothyroidism Priority: Secondary Status: Chronic Qualifiers: Hypothyroidism type: unspecified Qualified Code(s): E03.9 - Hypothyroidism, unspecified (6) Hypertension Priority: Secondary Status: Chronic Qualifiers: Hypertension type: essential hypertension Qualified Code(s): I10 - Essential (primary) hypertension (7) Hypomagnesemia Priority: Secondary Status: Resolved (8) Hypophosphatemia Priority: Secondary Status: Chronic (9) Hypotension Priority: Secondary Status: Resolved Qualifiers: Hypotension type: unspecified hypotension type Qualified Code(s): I95.9 - Hypotension, unspecified Hospital course: Ms. Bradford is a 88 year old female past medical history of hypertension, hypothyroidism, bilateral knee replacement, diastolic CHF who was recently treated for shingles came from [facility] a fall. Patient does not able to recall exactly what led to the fall and said she was very quick. Patient was reported to eat donut early this morning and later went to bathroom where she was found on the floor. She was likely not on floor for long time before found. Brought to the ED for evaluation. Patient was admitted to the hospital due to fa ll, JAKI. A skeletal survey done: Unremarkable. Patient found to be hypothermic, and hypotensive, with no signs of active infection. Patient was managed with IV hydration. UA: Unremarkable. Blood cultures: No growth to date. Patient hyponatremia and hypotension resolved following IV fluid hydration and warming blankets. Patient completed 14 days and cephalexin for shingles. Patient was evaluated by physical therapy, recommended ECF. After discussing with social welfare clerk, they called patient assisted living facility and informed them, patient's physical therapy needs needs to be increased. Patient is clinically stable to be discharged. Recommended to follow-up with her primary care physician within a week of hospital discharge. - Time Spent with Patient Total time spent providing and/or coordinating discharge services: Time spent: Greater than 30 minutes (35) - Discharge Medications Prescriptions: Continued Metoprolol Tartrate [Lopressor] 50 mg PO BID Lisinopril [Zestril] 40 mg PO DAILY Furosemide [Lasix] 20 mg PO DAILY Cholecalciferol (D-3) [Vitamin D] 1,000 unit PO DAILY Aspirin [Lo-Dose Aspirin EC] 81 mg PO DAILY Amlodipine Besylate 10 mg PO DAILY Docusate Sodium [Dok] 100 mg PO BID Gabapentin [Neurontin] 300 mg PO 1999 Levothyroxine Sodium [Levoxyl] 112 mcg PO DAILY Nystatin 1 appl TP BID Discontinued Cephalexin [Keflex] 500 mg PO TID #15 capsule Acyclovir [Zovirax] 800 mg PO 5XD #50 tablet Home Medications: Cholecalciferol (D-3) [Vitamin D] 1,000 unit PO DAILY 08/08/18 [History] Furosemide [Lasix] 20 mg PO DAILY 08/08/18 [History] Lisinopril [Zestril] 40 mg PO DAILY 08/08/18 [History] Metoprolol Tartrate [Lopressor] 50 mg PO BID 08/08/18 [History] Aspirin [Lo-Dose Aspirin EC] 81 mg PO DAILY 08/10/18 [History] Amlodipine Besylate 10 mg PO DAILY 04/17/19 [History] Docusate Sodium [Dok] 100 mg PO BID 04/17/19 [History] Gabapentin [Neurontin] 300 mg PO 2000 04/17/19 [History] Levothyroxine Sodium [Levoxyl] 112 mcg PO DAILY 04/17/19 [History] Nystatin 1 appl TP BID 04/17/19 [History] Allergies/Adverse Reactions: Allergy/AdvReac Type Severity Reaction Status Date / Time Sulfa (Sulfonamide AdvReac Rash Verified 08/08/18 02:36 Antibiotics) Date of admission: 04/19/19 14:19 Primary care physician: Sheron Garza CNP Consults: 04/17/19 13:26 Consult to Occupational Therapy [CONS] Routine Comment: Evaluate, develop and implement POC Reason for Consult: fall, improve mobility, discharge planning Does patient have active BEDREST order?: No Is patient medically & hemodynamically stable?: Yes Consult to Physical Therapy [CONS] Routine Comment: Evaluate, develop and implement POC Reason for Consult: fall, improve mobility, discharge planning Does patient have active BEDREST order?: No Is patient medically & hemodynamically stable?: Yes - Constitutional Vitals: Temp Pulse Resp BP Pulse Ox 98.6 F 65 16 132/75 98 04/20/19 11:28 04/20/19 11:28 04/20/19 11:28 04/20/19 11:28 04/20/19 11:28 Exam: Vitals: reviewed General: Alert and oriented x2. In no distress Cardiovascular: RRR, normal S1 & S2, no rubs, murmurs or gallops. Lungs: CTA b/l, no wheezes or crackles. Abdomen: Obese, soft, non-tender, no rigidity. Extremities: No edema. Neurological: No focal neurological abnormalities. Rest of the physical exam is non contributory - Patient Status Disposition: Transfer SNF Condition: Fair Functional capacity at discharge: uses cane/walker Overall status at discharge: patient is progressing back to baseline - Discharge Instructions Follow Up With: Sheron Garza CNP [Primary Care Provider] - 04/28/19 10:30 am - Diet and Activity Activity: as per physical therapy Diet: advance to your usual diet, low salt diet
--- NOTE | 2019-04-20 12:03 | Physician Discharge Referral ---
ExtendedCare Referral Info Transfer To: [facility] [place] - Diagnosis (1) Shingles Priority: Secondary Status: Acute (2) JAKI (acute kidney injury) Priority: Primary Status: Resolved (3) Fall Priority: Primary Status: Acute (4) Hypothermia Priority: Primary Status: Resolved (5) Hypothyroidism Priority: Secondary Status: Chronic (6) Hypertension Priority: Secondary Status: Chronic (7) Hypomagnesemia Priority: Secondary Status: Resolved (8) Hypophosphatemia Priority: Secondary Status: Chronic (9) Hypotension Priority: Secondary Status: Resolved Prognosis: Fair Aware of Diagnosis: Patient, Family Aware of Prognosis: Patient, Family - Transfer Medications Home Medications: Cholecalciferol (D-3) [Vitamin D] 1,000 unit PO DAILY 08/08/18 [History] Furosemide [Lasix] 20 mg PO DAILY 08/08/18 [History] Lisinopril [Zestril] 40 mg PO DAILY 08/08/18 [History] Metoprolol Tartrate [Lopressor] 50 mg PO BID 08/08/18 [History] Aspirin [Lo-Dose Aspirin EC] 81 mg PO DAILY 08/10/18 [History] Amlodipine Besylate 10 mg PO DAILY 04/17/19 [History] Docusate Sodium [Dok] 100 mg PO BID 04/17/19 [History] Gabapentin [Neurontin] 300 mg PO 2000 04/17/19 [History] Levothyroxine Sodium [Levoxyl] 112 mcg PO DAILY 04/17/19 [History] Nystatin 1 appl TP BID 04/17/19 [History] Allergies/Adverse Reactions: Allergy/AdvReac Type Severity Reaction Status Date / Time Sulfa (Sulfonamide AdvReac Rash Verified 08/08/18 02:36 Antibiotics) - Respiratory Orders Smoking Cessation: Smoking cessation has been advised. For more information, call the [place] Tobacco Quit Line at 1-907-HVLS-NOW. - Advance Directives Code Status: Full Code - Mobility Orders Ambulate - Rehabiliation Orders Rehab Potential: Fair Rehab Orders: Evaluation for Physical Therapy, Evaluation for Occupational Therapy - Diet Orders Regular CERTIFICATION: I certify that the transfer of the above named patient to an Extended Care Facility is necessary for the continuing treatment of the diagnosis listed. The above information is true and accurate reflection of patient's current condition. Confidential - Redisclosure prohibited without a patient's written consent.
[2019-04-20] MEDS ORDERED: Gabapentin 100 MG CAPSULE PO SCH (15:00)
== END 2019-04-20 18:14 | DRG 683 ==
LOC: EMEROOARM 08:42 → 2NNU 08:42 → SUATTDRO 13:47 → 2NNU 15:11 → 2ANU 04-19 22:41
PROVIDERS: ADMIT Internal Medicine; ATTEND Internal Medicine

== ENCOUNTER 2019-05-17 13:41 | Inpatient (IN) ==
[2019-05-17] MEDS ORDERED: Isovue-370 500 ML BOTTLE IVP ONE (13:48)
[2019-05-17 13:55] LABS: Hematocrit 35.8 % (35.3-44.9); Hemoglobin 12.4 g/dL (11.5-15.4); Mean Corpuscular HGB Conc 34.6 g/dL (31.6-35.5); Mean Corpuscular Hemoglobin 31.4 pg (28.0-33.3); Mean Corpuscular Volume 90.6 fL (83.0-100.0); Mean Platelet Volume 9.9 fL (9.4-12.4); Platelet Count 219 K/mcL (140-400); Red Blood Count 3.95 M/mcL (3.82-4.97); Red Cell Distribution Width 14.2 % (11.5-14.5); White Blood Count 9.6 K/mcL (4.3-11.1)
[2019-05-17 14:10] LABS: Activated Partial Thrombo Time 48.6 Seconds (26.0-36.0)
[2019-05-17] MEDS ORDERED: Aspirin 325 MG TABLET PO ONE (14:26)
[2019-05-17] MEDS ORDERED: Ringers Solution, Lactated 500 ML IVC ONE (14:42)
[2019-05-17 15:00] LABS: BUN/Creatinine Ratio 23 (6-26); Blood Urea Nitrogen 63 mg/dL (8-23); Calcium 8.9 mg/dL (8.6-10.3); Carbon Dioxide 26 mEq/L (23-29); Chloride 103 mEq/L (98-107); Glucose 130 mg/dL (70-105); Osmolality,Calculated 316 (280-300); Potassium 4.4 mEq/L (3.5-5.1); Sodium 143 mEq/L (136-145); Troponin I < 0.03 ng/mL (< 0.04); eGFR For African Americans 20 (> 60); eGFR For Non-African Americans 17 (> 60)
[2019-05-17] MEDS ORDERED: Ondansetron 4 MG/2 ML VIAL IVP PRN (15:22)
[2019-05-17] MEDS ORDERED: Acetaminophen 325 MG TABLET PO PRN (15:22)
[2019-05-17] MEDS ORDERED: *HR* HYDROcodone/Acet 5/325 mg TABLET PO PRN (15:22)
[2019-05-17] MEDS ORDERED: Naloxone 0.4 MG/ML INJ IVP PRN (15:22)
[2019-05-17] MEDS ORDERED: 0.9 % Sodium Chloride 1,000 ML IVC SCH (16:30)
[2019-05-17] MEDS: Gabapentin 300 MG CAPSULE PO SCH (20:12)
[2019-05-18 00:30] LABS: Bilirubin,Urine Negative (Negative); Blood,Urine Negative (Negative); Clarity,Urine Clear (Clear); Color,Urine Yellow (Yellow); Glucose,Urine (UA) Normal (Normal); Ketones,Urine Negative (Negative); Leukocyte Esterase,Urine Small (Negative); Nitrite,Urine Negative (Negative); Protein,Urine Negative (Neg-Trace); Specific Gravity,Urine 1.021 (1.010-1.025); Urobilinogen,Urine Normal (Normal)
[2019-05-18 00:34] LABS: Bacteria,Urine None Seen per hpf (None-Few); Hyaline Casts,Urine None Seen per lpf (None-Few); Squamous Epithelial Cell,Urine Few per lpf (None-Few)
[2019-05-18 07:03] LABS: Hemoglobin 11.5 g/dL (11.5-15.4); Mean Corpuscular HGB Conc 32.9 g/dL (31.6-35.5); Mean Corpuscular Hemoglobin 31.1 pg (28.0-33.3); Mean Corpuscular Volume 94.6 fL (83.0-100.0); Platelet Count 186 K/mcL (140-400); Red Cell Distribution Width 14.3 % (11.5-14.5); White Blood Count 6.9 K/mcL (4.3-11.1)
[2019-05-18 07:25] LABS: Calcium 8.2 mg/dL (8.6-10.3); Chol/HDL Ratio 2.3 (0-4.9); Magnesium 1.6 mg/dL (1.6-2.6); Phosphorous 4.7 mg/dL (2.7-4.5)
[2019-05-18] MEDS: Aspirin Enteric Coated 81 MG Tablet PO SCH (08:35)
[2019-05-18] MEDS: Cholecalciferol (D-3) 1,000 UNIT (25MCG) TABLET PO SCH (08:35)
[2019-05-18] MEDS ORDERED: Lisinopril 20 MG TABLET PO SCH (09:00)
[2019-05-18] MEDS ORDERED: Furosemide 20 MG TABLET PO SCH (09:00)
[2019-05-18] MEDS ORDERED: amLODIPine 5 MG TABLET PO SCH (09:00)
[2019-05-18] MEDS ORDERED: 0.9 % Sodium Chloride 1,000 ML IVC SCH (14:30)
[2019-05-18] MEDS: cefTRIAXone 1,000 MG in 0.9 % Sodium Chloride Mini Bag 100 ML IVPB SCH (16:27)
[2019-05-18] MEDS: *HR* Heparin 5,000 UNIT/ML VIAL SQ SCH (16:31)
[2019-05-18] MEDS: Gabapentin 300 MG CAPSULE PO SCH (21:18)
[2019-05-18] MEDS: Nystatin POWDER 30 GM BOTTLE TP SCH (21:23)
[2019-05-19 05:28] LABS: Calcium 8.5 mg/dL (8.6-10.3); Potassium 3.9 mEq/L (3.5-5.1)
[2019-05-19] MEDS: *HR* Heparin 5,000 UNIT/ML VIAL SQ SCH ×2 (05:36→17:18)
[2019-05-19] MEDS: cefTRIAXone 1,000 MG in 0.9 % Sodium Chloride Mini Bag 100 ML IVPB SCH (08:38)
[2019-05-19] MEDS: Cholecalciferol (D-3) 1,000 UNIT (25MCG) TABLET PO SCH (08:38)
[2019-05-19] MEDS: Aspirin Enteric Coated 81 MG Tablet PO SCH (08:38)
[2019-05-19] MEDS: Nystatin POWDER 30 GM BOTTLE TP SCH ×3 (08:39→21:55)
[2019-05-19] MEDS: Gabapentin 300 MG CAPSULE PO SCH (21:53)
[2019-05-20] MEDS: *HR* Heparin 5,000 UNIT/ML VIAL SQ SCH ×2 (06:00→17:35)
[2019-05-20] MEDS: Cholecalciferol (D-3) 1,000 UNIT (25MCG) TABLET PO SCH (07:26)
[2019-05-20] MEDS: cefTRIAXone 1,000 MG in 0.9 % Sodium Chloride Mini Bag 100 ML IVPB SCH (07:26)
[2019-05-20] MEDS: Aspirin Enteric Coated 81 MG Tablet PO SCH (07:26)
[2019-05-20] MEDS: Nystatin POWDER 30 GM BOTTLE TP SCH ×3 (07:29→21:11)
[2019-05-20 11:40] LABS: Calcium 8.6 mg/dL (8.6-10.3); Potassium 4.3 mEq/L (3.5-5.1)
[2019-05-20] MEDS: Gabapentin 300 MG CAPSULE PO SCH (21:10)
[2019-05-21 01:38] LABS: Hematocrit 33.4 % (35.3-44.9); Hemoglobin 11.3 g/dL (11.5-15.4); Mean Corpuscular HGB Conc 33.8 g/dL (31.6-35.5); Mean Corpuscular Volume 91.8 fL (83.0-100.0); Mean Platelet Volume 10.4 fL (9.4-12.4); Platelet Count 142 K/mcL (140-400); Red Blood Count 3.64 M/mcL (3.82-4.97); Red Cell Distribution Width 14.4 % (11.5-14.5); White Blood Count 8.3 K/mcL (4.3-11.1)
[2019-05-21 01:57] LABS: Calcium 8.7 mg/dL (8.6-10.3)
[2019-05-21] MEDS: *HR* Heparin 5,000 UNIT/ML VIAL SQ SCH (05:20)
[2019-05-21] MEDS: Aspirin Enteric Coated 81 MG Tablet PO SCH (08:22)
[2019-05-21] MEDS: Nystatin POWDER 30 GM BOTTLE TP SCH (08:22)
[2019-05-21] MEDS: cefTRIAXone 1,000 MG in 0.9 % Sodium Chloride Mini Bag 100 ML IVPB SCH (08:22)
[2019-05-21] MEDS: Cholecalciferol (D-3) 1,000 UNIT (25MCG) TABLET PO SCH (08:22)
[2019-05-21 11:33] VITALS: BP 131/65
== END 2019-05-21 13:30 | DRG 69 ==
LOC: 3BNU 13:41 → EMEROOARM 13:41 → 3BNU 18:18 → SUATTDRO 05-18 15:16
PROVIDERS: ADMIT Internal Medicine; ATTEND Family Medicine

== ENCOUNTER 2019-06-12 09:59 | Inpatient (IN) ==
[2019-06-12] MEDS ORDERED: 0.9 % Sodium Chloride 1,000 ML IVC ONE ×2 (10:32→12:11)
[2019-06-12] MEDS ORDERED: D5% in 0.9% NACL 1,000 ML IVC SCH (10:45)
[2019-06-12 11:12] LABS: INR 0.9; Prothrombin Time 10.7 Seconds (9.4-12.1)
[2019-06-12] MEDS ORDERED: 0.9 % Sodium Chloride 1,000 ML ONE (11:12)
[2019-06-12 11:15] LABS: Activated Partial Thrombo Time 28.2 Seconds (26.0-36.0)
[2019-06-12 11:18] LABS: Bilirubin,Urine Negative (Negative); Blood,Urine Negative (Negative); Clarity,Urine Clear (Clear); Color,Urine Yellow (Yellow); Glucose,Urine (UA) Normal (Normal); Ketones,Urine Negative (Negative); Leukocyte Esterase,Urine Negative (Negative); Nitrite,Urine Negative (Negative); Protein,Urine Negative (Neg-Trace); Specific Gravity,Urine 1.015 (1.010-1.025); Urobilinogen,Urine Normal (Normal)
[2019-06-12] MEDS ORDERED: Piperacillin/Tazobactam 3.375 GM in 0.9 % Sodium Chloride Mini Bag 100 ML IVPB ONE (12:11)
[2019-06-12] MEDS ORDERED: Azithromycin 500 MG in 0.9 % Sodium Chloride 250 ML IVPB ONE (12:11)
[2019-06-12] MEDS ORDERED: 0.9 % Sodium Chloride 500 ML IVC ONE (12:13)
[2019-06-12 12:19] LABS: Basophils % 0.4 %; Eosinophils # 0.2 K/mcL (0.0-0.6); Eosinophils % 3.8 %; Hematocrit 27.6 % (35.3-44.9); Hemoglobin 9.2 g/dL (11.5-15.4); Immature Granulocytes % 0.4 % (0-4); Lymphocytes % 19.1 %; Mean Corpuscular HGB Conc 33.3 g/dL (31.6-35.5); Mean Corpuscular Hemoglobin 31.4 pg (28.0-33.3); Mean Corpuscular Volume 94.2 fL (83.0-100.0); Mean Platelet Volume 10.6 fL (9.4-12.4); Monocytes # 0.4 K/mcL (0.0-1.3); Neutrophils # 3.4 K/mcL (1.6-8.9); Platelet Count 213 K/mcL (140-400); Red Blood Count 2.93 M/mcL (3.82-4.97); Red Cell Distribution Width 15.5 % (11.5-14.5); Segmented Neutrophils % 68.3 %
[2019-06-12 13:44] LABS: Amphetamine Screen,Urine Negative ng/mL (Cutoff=1000); Barbiturate Screen,Urine Negative ng/mL (Cutoff=200); Benzodiazepines Screen,Urine Negative ng/mL (Cutoff=200); Cannabinoid Screen,Urine Negative ng/mL (Cutoff = 50); Cocaine Screen,Urine Negative ng/mL (Cutoff= 300); Opiate Screen,Urine Negative ng/mL (Cutoff=300); Phencyclidine Screen,Urine Negative ng/mL (Cutoff=25)
[2019-06-12 14:06] LABS: Alanine Aminotransferase 17 Units/L (7-52); Alkaline Phosphatase 100 Units/L (34-104); Aspartate Amino Transferase 29 Units/L (13-39); BUN/Creatinine Ratio 23 (6-26); Bilirubin,Indirect 0.3 mg/dL (0.0-1.0); Bilirubin,Total 0.3 mg/dL (0.3-1.0); Blood Urea Nitrogen 56 mg/dL (8-23); Calcium 8.8 mg/dL (8.6-10.3); Carbon Dioxide 21 mEq/L (23-29); Chloride 112 mEq/L (98-107); Globulin 2.9 g/dL (2.4-3.5); Glucose 79 mg/dL (70-105); Osmolality,Calculated 310 (280-300); Potassium 5.3 mEq/L (3.5-5.1); Sodium 143 mEq/L (136-145); Thyroid Stimulating Hormone 0.465 mcIU/mL (0.340-5.600); Total Protein 5.9 g/dL (6.4-8.9); Troponin I < 0.03 ng/mL (< 0.04); eGFR For African Americans 23 (> 60); eGFR For Non-African Americans 19 (> 60)
[2019-06-12 14:42] LABS: VBG HCO3 21 mEq/L (21-27); VBG PCO2 35 mmHg (41-51); VBG PH 7.38 pH Units (7.32-7.42); VBG PO2 226 mmHg (25-50)
[2019-06-12] MEDS ORDERED: Naloxone 0.4 MG/ML INJ IVP PRN (15:12)
[2019-06-12] MEDS ORDERED: D5% in Water 1,000 ML IVC PRN (15:15)
[2019-06-12] MEDS ORDERED: *HR* Dextrose 50 % in Water (Syg) 50 ML SYRINGE IVP PRN (15:15)
[2019-06-12] MEDS ORDERED: Dextrose Gel 15 GM/37.5 ML TUBE PO PRN ×2 (15:15)
[2019-06-12 15:23] LABS: Triiodothyronine (T3) Free 2.69 pg/mL (2.50-3.90)
[2019-06-12] MEDS ORDERED: Albuterol 2.5 MG/3 ML NEBULIZER IH ONE (16:45)
[2019-06-12] MEDS: Insulin LISPRO 300 UNITS/3 ML VIAL SQ SCH (17:32)
[2019-06-12] MEDS: D5% in Lactated Ringers 1,000 ML IVC SCH (17:56)
[2019-06-12] MEDS: *HR* Heparin 5,000 UNIT/ML VIAL SQ SCH (17:59)
[2019-06-13] MEDS: Insulin LISPRO 300 UNITS/3 ML VIAL SQ SCH ×4 (00:09→18:13)
[2019-06-13] MEDS: Piperacillin/Tazobactam 3.375 GM in 0.9 % Sodium Chloride Mini Bag 100 ML IVPB SCH ×2 (02:44→13:18)
[2019-06-13] MEDS: *HR* Heparin 5,000 UNIT/ML VIAL SQ SCH ×2 (05:40→16:57)
[2019-06-13] MEDS ORDERED: Vancomycin 1 EACH in 0.9 % Sodium Chloride 250 ML IVPB PRN (09:00)
[2019-06-13] MEDS: D5% in Lactated Ringers 1,000 ML IVC SCH (10:11)
[2019-06-13 10:28] LABS: Basophils % 0.5 %; Eosinophils # 0.3 K/mcL (0.0-0.6); Eosinophils % 4.5 %; Hematocrit 29.3 % (35.3-44.9); Hemoglobin 9.6 g/dL (11.5-15.4); Immature Granulocytes % 0.3 % (0-4); Lymphocytes # 1.2 K/mcL (0.6-4.6); Lymphocytes % 17.9 %; Mean Corpuscular HGB Conc 32.8 g/dL (31.6-35.5); Mean Corpuscular Hemoglobin 31.6 pg (28.0-33.3); Mean Corpuscular Volume 96.4 fL (83.0-100.0); Mean Platelet Volume 10.6 fL (9.4-12.4); Monocytes # 0.5 K/mcL (0.0-1.3); Monocytes % 7.6 %; Neutrophils # 4.5 K/mcL (1.6-8.9); Platelet Count 226 K/mcL (140-400); Red Blood Count 3.04 M/mcL (3.82-4.97); Red Cell Distribution Width 15.8 % (11.5-14.5); Segmented Neutrophils % 69.2 %; White Blood Count 6.5 K/mcL (4.3-11.1)
[2019-06-13 10:50] LABS: Albumin 2.9 g/dL (3.5-5.7); Bilirubin,Total 0.3 mg/dL (0.3-1.0); Calcium 8.6 mg/dL (8.6-10.3); Globulin 2.8 g/dL (2.4-3.5); Magnesium 1.7 mg/dL (1.6-2.6); Phosphorous 4.3 mg/dL (2.7-4.5); Potassium 4.3 mEq/L (3.5-5.1); Total Protein 5.7 g/dL (6.4-8.9)
[2019-06-14] MEDS: Insulin LISPRO 300 UNITS/3 ML VIAL SQ SCH ×5 (00:06→21:52)
[2019-06-14] MEDS: Piperacillin/Tazobactam 3.375 GM in 0.9 % Sodium Chloride Mini Bag 100 ML IVPB SCH ×3 (01:52→18:27)
[2019-06-14] MEDS: *HR* Heparin 5,000 UNIT/ML VIAL SQ SCH ×2 (05:47→18:30)
[2019-06-14 06:16] LABS: Basophils % 0.4 %; Eosinophils # 0.3 K/mcL (0.0-0.6); Eosinophils % 3.5 %; Hematocrit 29.1 % (35.3-44.9); Hemoglobin 9.4 g/dL (11.5-15.4); Immature Granulocytes % 0.5 % (0-4); Lymphocytes # 0.8 K/mcL (0.6-4.6); Lymphocytes % 10.3 %; Mean Corpuscular HGB Conc 32.3 g/dL (31.6-35.5); Mean Corpuscular Hemoglobin 31.1 pg (28.0-33.3); Mean Corpuscular Volume 96.4 fL (83.0-100.0); Mean Platelet Volume 10.7 fL (9.4-12.4); Monocytes # 0.6 K/mcL (0.0-1.3); Monocytes % 6.7 %; Neutrophils # 6.4 K/mcL (1.6-8.9); Platelet Count 216 K/mcL (140-400); Red Blood Count 3.02 M/mcL (3.82-4.97); Red Cell Distribution Width 15.8 % (11.5-14.5); Segmented Neutrophils % 78.6 %; White Blood Count 8.2 K/mcL (4.3-11.1)
[2019-06-14 06:37] LABS: Calcium 8.9 mg/dL (8.6-10.3); Magnesium 1.6 mg/dL (1.6-2.6); Phosphorous 3.8 mg/dL (2.7-4.5); Potassium 4.3 mEq/L (3.5-5.1)
[2019-06-14] MEDS ORDERED: Aminoglycoside Consult 1 EACH MC ONE (07:34)
[2019-06-14] MEDS ORDERED: Haloperidol Lactate 5 MG/ML VIAL IVP ONE ×2 (15:12→18:40)
[2019-06-14] MEDS ORDERED: Ipratropium/Albuterol Neb 3 ML IH PRN (15:13)
[2019-06-14] MEDS ORDERED: D5% in 0.45% NACL 1,000 ML IVC SCH (15:15)
[2019-06-14 17:18] LABS: Adenovirus Not Detected (Not Detect); Bordetella Pertussis Not Detected (Not Detect); Chlamydophila pneumoniae Not Detected (Not Detect); Coronavirus 229E Not Detected (Not Detect); Coronavirus HKU1 Not Detected (Not Detect); Coronavirus NL63 Not Detected (Not Detect); Coronavirus OC43 Not Detected (Not Detect); Human Metapneumovirus Not Detected (Not Detect); Human Rhinovirus/Enterovirus Not Detected (Not Detect); Influenza A Subtype 2009 H1 Not Detected (Not Detect); Influenza A Untypeable Not Detected (Not Detect); Influenza B Not Detected (Not Detect); Mycoplasma pneumoniae Not Detected (Not Detect); Parainfluenza Virus 1 Not Detected (Not Detect); Parainfluenza Virus 2 Not Detected (Not Detect); Parainfluenza Virus 3 Not Detected (Not Detect); Parainfluenza Virus 4 Not Detected (Not Detect); Respiratory Syncytial Virus Not Detected (Not Detect)
[2019-06-14] MEDS: MethylPREDNISolone 40 MG/ML VIAL IVP SCH (18:28)
[2019-06-14] MEDS: Furosemide 20 MG/2 ML VIAL IVP SCH (18:29)
[2019-06-14] MEDS: Mirtazapine 15 MG TABLET PO SCH (20:12)
[2019-06-15] MEDS ORDERED: Haloperidol Lactate 5 MG/ML VIAL IVP ONE (02:44)
[2019-06-15 04:45] LABS: Calcium 9.2 mg/dL (8.6-10.3); Magnesium 1.6 mg/dL (1.6-2.6); Phosphorous 4.2 mg/dL (2.7-4.5); Potassium 4.7 mEq/L (3.5-5.1)
[2019-06-15] MEDS: Piperacillin/Tazobactam 3.375 GM in 0.9 % Sodium Chloride Mini Bag 100 ML IVPB SCH ×2 (05:16→18:43)
[2019-06-15] MEDS: MethylPREDNISolone 40 MG/ML VIAL IVP SCH ×2 (05:16→18:35)
[2019-06-15] MEDS: *HR* Heparin 5,000 UNIT/ML VIAL SQ SCH ×2 (05:16→18:41)
[2019-06-15] MEDS ORDERED: *HR* Metoprolol 5 MG/5 ML VIAL IVP PRN (09:35)
[2019-06-15] MEDS ORDERED: Haloperidol Lactate 5 MG/ML VIAL IVP PRN (09:36)
[2019-06-15] MEDS: Furosemide 20 MG/2 ML VIAL IVP SCH (09:36)
[2019-06-15] MEDS: Cholecalciferol (D-3) 1,000 UNIT (25MCG) TABLET PO SCH (09:37)
[2019-06-15] MEDS: Insulin LISPRO 300 UNITS/3 ML VIAL SQ SCH ×4 (09:37→20:34)
[2019-06-15] MEDS: Aspirin Enteric Coated 81 MG Tablet PO SCH (09:37)
[2019-06-15] MEDS: D5% in 0.45% NACL 1,000 ML IVC SCH (11:16)
[2019-06-15] MEDS: Haloperidol Oral Conc 10 MG/5 ML UDC PO SCH ×2 (16:00→23:57)
[2019-06-15] MEDS: Haloperidol Lactate 5 MG/ML VIAL IVP PRN (18:35)
[2019-06-15] MEDS ORDERED: *HR* Promethazine 25 MG/ML VIAL IVP ONE (19:40)
[2019-06-15] MEDS: Mirtazapine 15 MG TABLET PO SCH (20:35)
[2019-06-16] MEDS: MethylPREDNISolone 40 MG/ML VIAL IVP SCH (05:02)
[2019-06-16] MEDS: *HR* Heparin 5,000 UNIT/ML VIAL SQ SCH ×2 (05:02→18:02)
[2019-06-16] MEDS: Piperacillin/Tazobactam 3.375 GM in 0.9 % Sodium Chloride Mini Bag 100 ML IVPB SCH ×2 (05:02→18:03)
[2019-06-16] MEDS: Cholecalciferol (D-3) 1,000 UNIT (25MCG) TABLET PO SCH (07:57)
[2019-06-16] MEDS: Aspirin Enteric Coated 81 MG Tablet PO SCH (07:57)
[2019-06-16] MEDS: Insulin LISPRO 300 UNITS/3 ML VIAL SQ SCH ×4 (07:57→21:20)
[2019-06-16] MEDS: Haloperidol Lactate 5 MG/ML VIAL IVP PRN ×2 (07:57→21:31)
[2019-06-16] MEDS: Furosemide 20 MG/2 ML VIAL IVP SCH (07:57)
[2019-06-16] MEDS: Haloperidol Oral Conc 10 MG/5 ML UDC PO SCH (07:57)
[2019-06-16] MEDS: D5% in 0.45% NACL 1,000 ML IVC SCH (15:30)
[2019-06-16] MEDS: Mirtazapine 15 MG TABLET PO SCH (21:19)
[2019-06-17 04:42] LABS: Hematocrit 29.1 % (35.3-44.9); Hemoglobin 9.1 g/dL (11.5-15.4); Immature Granulocytes % 0.4 % (0-4); Lymphocytes # 0.6 K/mcL (0.6-4.6); Lymphocytes % 5.5 %; Mean Corpuscular HGB Conc 31.3 g/dL (31.6-35.5); Mean Corpuscular Hemoglobin 31.4 pg (28.0-33.3); Mean Corpuscular Volume 100.3 fL (83.0-100.0); Mean Platelet Volume 10.8 fL (9.4-12.4); Monocytes # 0.7 K/mcL (0.0-1.3); Monocytes % 6.3 %; Neutrophils # 9.7 K/mcL (1.6-8.9); Platelet Count 167 K/mcL (140-400); Red Cell Distribution Width 15.7 % (11.5-14.5); Segmented Neutrophils % 87.8 %
[2019-06-17 05:04] LABS: Calcium 9.6 mg/dL (8.6-10.3); Magnesium 1.9 mg/dL (1.6-2.6); Phosphorous 4.3 mg/dL (2.7-4.5); Potassium 3.7 mEq/L (3.5-5.1)
[2019-06-17] MEDS: Piperacillin/Tazobactam 3.375 GM in 0.9 % Sodium Chloride Mini Bag 100 ML IVPB SCH (05:23)
[2019-06-17] MEDS: *HR* Heparin 5,000 UNIT/ML VIAL SQ SCH (05:23)
[2019-06-17] MEDS: Haloperidol Lactate 5 MG/ML VIAL IVP PRN (06:01)
[2019-06-17] MEDS ORDERED: D5% in 0.45% NACL 1,000 ML IVC SCH (07:45)
[2019-06-17] MEDS ORDERED: Haloperidol Lactate 5 MG/ML VIAL IVP ONE (10:00)
[2019-06-17] MEDS: Furosemide 20 MG/2 ML VIAL IVP SCH (10:37)
[2019-06-17] MEDS: predniSONE 20 MG TABLET PO SCH (10:56)
[2019-06-17] MEDS: Haloperidol Oral Conc 10 MG/5 ML UDC PO SCH ×3 (13:49→23:44)
[2019-06-17] MEDS: Mirtazapine 15 MG TABLET PO SCH (19:49)
[2019-06-18] MEDS: Haloperidol Oral Conc 10 MG/5 ML UDC PO SCH ×2 (05:54→13:00)
[2019-06-18] MEDS: Furosemide 20 MG/2 ML VIAL IVP SCH (08:48)
[2019-06-18] MEDS: predniSONE 20 MG TABLET PO SCH (08:50)
[2019-06-18] MEDS: Haloperidol Lactate 5 MG/ML VIAL IVP PRN (09:07)
[2019-06-18 10:55] VITALS: BP 138/68
== END 2019-06-18 15:35 | disposition hospice, inpatient (51) | DRG 871 ==
LOC: EMEROOARM 09:59 → 2ANU 09:59 → SUATTDRO 15:16 → 2ANU 15:20 → SUATTDRO 06-14 16:07
PROVIDERS: ADMIT Internal Medicine; ATTEND Pharmacist

== ENCOUNTER 2019-06-18 09:30 | Inpatient (IN) ==
[2019-06-18] MEDS ORDERED: Bisacodyl 10 MG RECTAL SUPPOSITORY RC PRN (10:54)
[2019-06-18] MEDS ORDERED: Ipratropium/Albuterol Neb 3 ML IH PRN (10:55)
[2019-06-18] MEDS ORDERED: Haloperidol Oral Conc 10 MG/5 ML UDC PO PRN (10:57)
[2019-06-18] MEDS: Haloperidol Oral Conc 10 MG/5 ML UDC PO SCH ×2 (17:51→23:32)
[2019-06-19] MEDS: Haloperidol Oral Conc 10 MG/5 ML UDC PO SCH ×3 (05:07→17:25)
[2019-06-20] MEDS: Haloperidol Oral Conc 10 MG/5 ML UDC PO SCH ×5 (00:11→23:42)
[2019-06-21] MEDS: Haloperidol Oral Conc 10 MG/5 ML UDC PO SCH ×4 (06:12→23:27)
[2019-06-22] MEDS: Haloperidol Oral Conc 10 MG/5 ML UDC PO SCH ×4 (06:10→23:43)
[2019-06-22] MEDS: Sennosides/Docusate Sodium TABLET PO SCH ×2 (08:38→21:41)
[2019-06-23] MEDS: Haloperidol Oral Conc 10 MG/5 ML UDC PO SCH ×2 (06:07→12:23)
[2019-06-23] MEDS: Sennosides/Docusate Sodium TABLET PO SCH (08:39)
[2019-06-23 11:40] VITALS: BP 135/83
== END 2019-06-23 15:30 | disposition hospice, inpatient (51) | DRG 951 ==
LOC: 2ANU 16:02
PROVIDERS: ADMIT Internal Medicine Hospice and Palliative Medicine; ATTEND Internal Medicine Hospice and Palliative Medicine

== ENCOUNTER 2019-08-19 07:57 | Inpatient (IN) ==
[2019-08-19] MEDS: 0.9 % Sodium Chloride 1,000 ML IVC ONE ×2 (08:19→22:47)
[2019-08-19] MEDS: Ondansetron 4 MG/2 ML VIAL IVP ONE ×2 (08:19→22:47)
[2019-08-19 08:47] LABS: Basophils % 0.2 %; Eosinophils % 0.3 %; Hematocrit 39.7 % (35.3-44.9); Hemoglobin 13.6 g/dL (11.5-15.4); Immature Granulocytes % 0.4 % (0-4); Lymphocytes % 10.1 %; Mean Corpuscular HGB Conc 34.3 g/dL (31.6-35.5); Mean Corpuscular Hemoglobin 30.6 pg (28.0-33.3); Mean Corpuscular Volume 89.4 fL (83.0-100.0); Mean Platelet Volume 9.8 fL (9.4-12.4); Monocytes # 0.7 K/mcL (0.0-1.3); Monocytes % 7.5 %; Platelet Count 209 K/mcL (140-400); Red Blood Count 4.44 M/mcL (3.82-4.97); Red Cell Distribution Width 15.2 % (11.5-14.5); Segmented Neutrophils % 81.5 %; White Blood Count 9.8 K/mcL (4.3-11.1)
[2019-08-19 08:53] LABS: Albumin 3.2 g/dL (3.5-5.7); Albumin/Globulin Ratio 1.3 (1.1-2.2); Bilirubin,Total 0.8 mg/dL (0.3-1.0); Globulin 2.4 g/dL (2.4-3.5); Potassium 4.8 mEq/L (3.5-5.1); Total Protein 5.6 g/dL (6.4-8.9)
[2019-08-19 09:16] LABS: Bilirubin,Urine Large (Negative); Blood,Urine Negative (Negative); Clarity,Urine Cloudy (Clear); Color,Urine Orange (Yellow); Glucose,Urine (UA) Normal (Normal); Ketones,Urine Trace mg/dL (Negative); Leukocyte Esterase,Urine Large (Negative); Nitrite,Urine Negative (Negative); Protein,Urine Negative (Neg-Trace); Specific Gravity,Urine 1.024 (1.010-1.025); Urobilinogen,Urine Normal (Normal)
[2019-08-19 10:00] LABS: Bacteria,Urine None Seen per hpf (None-Few); Squamous Epithelial Cell,Urine Many per lpf (None-Few); WBC,Urine 50-100 per hpf (0-3)
[2019-08-19] MEDS ORDERED: levoFLOXacin 750 MG/150 ML 750 MG/150 ML BAG IVPB ONE (10:37)
[2019-08-19 10:39] LABS: Renal Epithelial Cells,Urine Few per hpf (None-Few)
[2019-08-19 10:40] LABS: Amorphous Sediment,Urine Moderate per hpf (Few)
[2019-08-19 10:41] LABS: Hyaline Casts,Urine Moderate per lpf (None-Few)
[2019-08-19] MEDS ORDERED: 0.9 % Sodium Chloride 500 ML IVC ONE (10:43)
[2019-08-19] MEDS ORDERED: Naloxone 0.4 MG/ML INJ IVP PRN (11:31)
[2019-08-19] MEDS ORDERED: Acetaminophen 325 MG TABLET PO PRN (11:31)
[2019-08-19] MEDS ORDERED: Ringers Solution, Lactated 1,000 ML IVC SCH (11:45)
[2019-08-19] MEDS: Piperacillin/Tazobactam 3.375 GM in 0.9 % Sodium Chloride Mini Bag 100 ML IVPB ONE ×2 (12:22→12:31)
[2019-08-19] MEDS: *HR* Heparin 5,000 UNIT/ML VIAL SQ SCH (18:18)
[2019-08-19] MEDS: Sennosides/Docusate Sodium TABLET PO SCH ×2 (21:56→22:19)
[2019-08-20] MEDS: *HR* Heparin 5,000 UNIT/ML VIAL SQ SCH (05:30)
[2019-08-20 06:33] LABS: Basophils % 0.3 %; Eosinophils % 0.4 %; Immature Granulocytes % 0.4 % (0-4); Lymphocytes % 12.5 %; Mean Corpuscular Hemoglobin 31.1 pg (28.0-33.3); Mean Corpuscular Volume 88.8 fL (83.0-100.0); Mean Platelet Volume 10.4 fL (9.4-12.4); Monocytes # 0.6 K/mcL (0.0-1.3); Monocytes % 7.5 %; Platelet Count 168 K/mcL (140-400); Red Blood Count 3.83 M/mcL (3.82-4.97); Red Cell Distribution Width 15.3 % (11.5-14.5); Segmented Neutrophils % 78.9 %; White Blood Count 7.6 K/mcL (4.3-11.1)
[2019-08-20 06:35] LABS: Hemoglobin 11.9 g/dL (11.5-15.4)
[2019-08-20 07:14] LABS: Calcium 8.8 mg/dL (8.6-10.3); Magnesium 1.3 mg/dL (1.6-2.6); Potassium 3.5 mEq/L (3.5-5.1)
[2019-08-20] MEDS: cefTRIAXone 1,000 MG in 0.9 % Sodium Chloride Mini Bag 100 ML IVPB SCH (08:49)
[2019-08-20] MEDS ORDERED: cefTRIAXone 1,000 MG in Water for inj. (sterile) 10 ML IVP SCH (09:00)
[2019-08-20] MEDS: Ondansetron 4 MG/2 ML VIAL IVP PRN (09:06)
[2019-08-20] MEDS ORDERED: Milk and Molasses Enema 200 ML RC ONE (10:28)
[2019-08-20] MEDS ORDERED: Morphine Sulfate Oral CONC 10 MG/0.5 ML ORAL.SYG PO PRN (10:28)
[2019-08-20] MEDS: Sennosides/Docusate Sodium TABLET PO SCH (10:46)
[2019-08-21] MEDS: Ondansetron 4 MG/2 ML VIAL IVP PRN (06:24)
[2019-08-21] MEDS: cefTRIAXone 1,000 MG in 0.9 % Sodium Chloride Mini Bag 100 ML IVPB SCH (08:59)
[2019-08-21 11:32] VITALS: BP 157/85
== END 2019-08-21 12:19 | disposition hospice, home (50) | DRG 392 ==
LOC: EMEROOARM 07:57 → CDU 07:57 → 2ANU 18:00 → SUATTDRO 08-20 12:28
PROVIDERS: ADMIT Internal Medicine; ATTEND Internal Medicine